=== PATIENT | male | born 1960 | race African-American/Black ===

== ENCOUNTER 2018-03-27 12:14 | Emergency (ER) | payer MEDICAID, OTHER ==
[~2018-03-27] VITALS: Ht 175.3 cm; Wt 80.0 kg
[~2018-03-27 12:14] MED LIST: NO MEDS
[2018-03-27] MEDS ORDERED: ONDANSETRON HCL 4MG TABLET PO ONE (13:00)
[2018-03-27] MEDS ORDERED: IBUPROFEN 600MG TABLET PO ONE (13:00)
[2018-03-27] MEDS ORDERED: ACETAMINOPHEN 325MG TABLET PO ONE (13:00)
[2018-03-27 13:01] VITALS: BP 122/78
== END 2018-03-27 13:05 | disposition home or self-care (01) ==
LOC: ER 12:40
DX: R51 Headache (principal); R42 Dizziness and giddiness; Z87.891 Personal history of nicotine dependence
CPT/HCPCS: 99284; Q0162

== ENCOUNTER 2018-03-30 19:11 | Emergency (ER) | payer MEDICAID, OTHER ==
[~2018-03-30] VITALS: Ht 177.8 cm; Wt 80.0 kg
[2018-03-30 21:41] LABS: CLARITY URINE CLEAR (CLEAR); COLOR URINE YELLOW (YELLOW); KETONES URINE NEGATIVE (NEGATIVE); LEUKOCYTE ESTERASE URINE NEGATIVE (NEGATIVE); NITRITE URINE NEGATIVE (NEGATIVE); OCCULT BLOOD URINE NEGATIVE (NEGATIVE); PH URINE 5.5 (4.5-8.0); PROTEIN URINE NEGATIVE (NEGATIVE); SPECIFIC GRAVITY URINE 1.011 (1.005-1.030); UROBILINOGEN URINE 0.2 E.U./dL (0.2-1.0)
[2018-03-30 22:01] LABS: *AMPHETAMINES SCREEN URINE NEGATIVE (NEGATIVE); *BARBITURATES SCREEN URINE NEGATIVE (NEGATIVE); *BENZODIAZEPINES SCREEN URINE NEGATIVE (NEGATIVE); *COCAINE SCREEN URINE NEGATIVE (NEGATIVE)
[2018-03-30 22:01] LABS: BASOPHILS % 0.7 % (0.0-2.0); EOSINOPHILS % 1.9 % (0.0-5.0); HEMATOCRIT. 38.5 % (42.0-52.0); HEMOGLOBIN. 13.1 g/dL (14.0-18.0); LYMPHOCYTES % 31.9 % (20.0-50.0); MEAN CORPUSCULAR HEMOGLOBIN 32.4 pg (28.0-32.0); MEAN PLATELET VOLUME 7.7 fl (7.4-10.4); MONOCYTES % 5.6 % (2.0-8.0); NEUTROPHILS % 59.9 % (40.0-76.0); PLATELET 170 x1000/uL (130-400); RED BLOOD CELL COUNT 4.06 mill/uL (4.7-6.1); RED CELL DISTRIBUTION WIDTH 15.1 % (11.6-14.6)
[2018-03-30 22:02] LABS: CANNABINOID URINE SCREEN NEGATIVE (NEGATIVE); METHADONE URINE SCREEN NEGATIVE (NEGATIVE); OPIATES URINE SCREEN NEGATIVE (NEGATIVE); PHENCYCLIDINE URINE SCREEN NEGATIVE (NEGATIVE)
[2018-03-30 22:04] LABS: CHLORIDE 105 mEq/L (98-107)
[2018-03-30 22:08] LABS: ETHANOL BLOOD < 10 mg/dL
[2018-03-30] MEDS ORDERED: POTASSIUM CHLORIDE 20MEQ TABLET SR PO ONE (22:30)
[2018-03-31 12:47] VITALS: BP 142/58
== END 2018-03-31 12:55 | disposition home or self-care (01) ==
LOC: ER 19:11
DX: R45.851 Suicidal ideations (principal); E87.6 Hypokalemia; R51 Headache; Z59.0 Homelessness
CPT/HCPCS: 36415; 80053; 80305; 80307; 80329; 81003; 85025; 99284; G0482

== ENCOUNTER 2018-11-01 21:07 | Emergency (ER) | payer MEDICAID, OTHER ==
[~2018-11-01] VITALS: Ht 177.8 cm; Wt 88.0 kg
[2018-11-01 21:10] VITALS: BP 142/100
== END 2018-11-02 02:30 | disposition left against medical advice (07) ==
LOC: ER 22:23
DX: Z53.21 Procedure and treatment not carried out due to patient leaving prior to being seen by health care provider (principal)

== ENCOUNTER 2018-11-11 21:11 | Emergency (ER) | payer OTHER ==
[~2018-11-11] VITALS: Ht 177.8 cm; Wt 109.0 kg
[2018-11-12 05:00] VITALS: BP 141/78
== END 2018-11-12 10:53 | disposition home or self-care (01) ==
LOC: ER 21:11
DX: J06.9 Acute upper respiratory infection, unspecified (principal); I10 Essential (primary) hypertension; J98.11 Atelectasis; I51.7 Cardiomegaly; Z59.0 Homelessness
CPT/HCPCS: 71045; 99283

== ENCOUNTER 2018-11-14 16:48 | Emergency (ER) | payer OTHER ==
[~2018-11-14] VITALS: Ht 177.8 cm; Wt 80.0 kg
[2018-11-14 16:51] VITALS: BP 180/98
== END 2018-11-14 20:20 | disposition left against medical advice (07) ==
LOC: ER 16:48
DX: Z53.21 Procedure and treatment not carried out due to patient leaving prior to being seen by health care provider (principal)

== ENCOUNTER 2019-03-09 16:27 | Emergency (ER) | payer OTHER ==
[~2019-03-09] VITALS: Ht 177.8 cm; Wt 91.0 kg
[2019-03-09 16:39] VITALS: BP 105/39
== END 2019-03-09 20:50 | disposition left against medical advice (07) ==
LOC: ER 16:27
DX: J00 Acute nasopharyngitis [common cold] (principal); Z53.21 Procedure and treatment not carried out due to patient leaving prior to being seen by health care provider

== ENCOUNTER 2019-07-27 08:18 | Emergency (ER) | payer OTHER ==
[~2019-07-27] VITALS: Ht 177.8 cm; Wt 135.0 kg
[2019-07-27 09:31] LABS: BASOPHILS % 0.8 % (0.0-2.0); EOSINOPHILS % 1.3 % (0.0-5.0); HEMATOCRIT. 41.3 % (42.0-52.0); LYMPHOCYTES % 26.2 % (20.0-50.0); MEAN CORPUSCULAR HEMOGLOBIN 31.7 pg (28.0-32.0); MEAN CORPUSCULAR VOLUME 93.4 fL (80.0-94.0); MEAN PLATELET VOLUME 7.2 fl (7.4-10.4); MONOCYTES % 10.2 % (2.0-8.0); NEUTROPHILS % 61.5 % (40.0-76.0); PLATELET 197 x1000/uL (130-400); RED BLOOD CELL COUNT 4.42 mill/uL (4.7-6.1); RED CELL DISTRIBUTION WIDTH 13.9 % (11.6-14.6)
[2019-07-27 09:36] LABS: CHLORIDE 103 mEq/L (98-107)
[2019-07-27 09:44] LABS: ETHANOL BLOOD < 10 mg/dL
[2019-07-27 09:49] LABS: CLARITY URINE CLEAR (CLEAR); COLOR URINE YELLOW (YELLOW); KETONES URINE NEGATIVE (NEGATIVE); LEUKOCYTE ESTERASE URINE 1+ (NEGATIVE); NITRITE URINE NEGATIVE (NEGATIVE); OCCULT BLOOD URINE TRACE (NEGATIVE); PROTEIN URINE NEGATIVE (NEGATIVE); UROBILINOGEN URINE 0.2 E.U./dL (0.2-1.0)
[2019-07-27 10:02] LABS: *AMPHETAMINES SCREEN URINE NEGATIVE (NEGATIVE); *BARBITURATES SCREEN URINE NEGATIVE (NEGATIVE); *BENZODIAZEPINES SCREEN URINE NEGATIVE (NEGATIVE); *COCAINE SCREEN URINE NEGATIVE (NEGATIVE); CANNABINOID URINE SCREEN NEGATIVE (NEGATIVE); METHADONE URINE SCREEN NEGATIVE (NEGATIVE); OPIATES URINE SCREEN NEGATIVE (NEGATIVE); PHENCYCLIDINE URINE SCREEN NEGATIVE (NEGATIVE)
[2019-07-27 16:15] VITALS: BP 139/93
== END 2019-07-27 16:15 | disposition home or self-care (01) ==
LOC: ER 08:18
DX: R45.851 Suicidal ideations (principal); F12.10 Cannabis abuse, uncomplicated; F15.10 Other stimulant abuse, uncomplicated; F16.10 Hallucinogen abuse, uncomplicated; F19.10 Other psychoactive substance abuse, uncomplicated; F17.200 Nicotine dependence, unspecified, uncomplicated; F10.20 Alcohol dependence, uncomplicated; I95.9 Hypotension, unspecified; Z98.890 Other specified postprocedural states; Y90.0 Blood alcohol level of less than 20 mg/100 ml
CPT/HCPCS: 36415; 80305; 80320; 81003; 99284; G0480

== ENCOUNTER 2019-10-16 10:53 | Emergency (ER) | payer OTHER ==
[~2019-10-16] VITALS: Ht 165.1 cm; Wt 87.0 kg
[2019-10-16] MEDS ORDERED: SODIUM CHLORIDE 0.9% 1,000 ML IV ONE (13:22)
[2019-10-16] MEDS ORDERED: ONDANSETRON HCL 4MG/2ML INJ IV STA (13:22)
[2019-10-16] MEDS ORDERED: ACETAMINOPHEN 325MG TABLET PO ONE (13:30)
[2019-10-16 13:46] LABS: BASOPHILS % 0.6 % (0.0-2.0); EOSINOPHILS % 1.3 % (0.0-5.0); HEMATOCRIT. 42.1 % (42.0-52.0); HEMOGLOBIN. 14.2 g/dL (14.0-18.0); LYMPHOCYTES % 25.4 % (20.0-50.0); MEAN CORPUSCULAR HEMOGLOBIN 32.1 pg (28.0-32.0); MEAN PLATELET VOLUME 7.4 fl (7.4-10.4); MONOCYTES % 7.5 % (2.0-8.0); NEUTROPHILS % 65.2 % (40.0-76.0); PLATELET 215 x1000/uL (130-400); RED BLOOD CELL COUNT 4.43 mill/uL (4.7-6.1)
[2019-10-16 13:53] LABS: CHLORIDE 104 mEq/L (98-107)
[2019-10-16] MEDS ORDERED: FAMOTIDINE 20MG TABLET PO ONE (14:15)
[2019-10-16 14:30] VITALS: BP 120/68
== END 2019-10-16 15:10 | disposition home or self-care (01) ==
LOC: ER 10:53
DX: R19.7 Diarrhea, unspecified (principal); I10 Essential (primary) hypertension; F12.10 Cannabis abuse, uncomplicated; F15.10 Other stimulant abuse, uncomplicated; F16.10 Hallucinogen abuse, uncomplicated; Z87.891 Personal history of nicotine dependence
CPT/HCPCS: 36415; 80053; 83690; 85025; 96374; 99283; J2405; J7030

== ENCOUNTER 2019-11-17 03:18 | Emergency (ER) | payer OTHER ==
[~2019-11-17] VITALS: Ht 177.8 cm; Wt 150.0 kg
[2019-11-17 03:54] VITALS: BP 144/91
== END 2019-11-17 08:56 | disposition left against medical advice (07) ==
LOC: ER 03:18
DX: Z53.21 Procedure and treatment not carried out due to patient leaving prior to being seen by health care provider (principal); F31.9 Bipolar disorder, unspecified; F20.9 Schizophrenia, unspecified

== ENCOUNTER 2019-11-30 13:16 | Emergency (ER) | payer MEDICAID, OTHER ==
[~2019-11-30] VITALS: Ht 177.8 cm; Wt 100.0 kg
[2019-11-30 14:37] LABS: BASOPHILS % 0.7 % (0.0-2.0); EOSINOPHILS % 0.6 % (0.0-5.0); HEMATOCRIT. 40.3 % (42.0-52.0); HEMOGLOBIN. 14.3 g/dL (14.0-18.0); MEAN CORPUSCULAR HEMOGLOBIN 33.1 pg (28.0-32.0); MEAN CORPUSCULAR VOLUME 92.8 fL (80.0-94.0); MEAN PLATELET VOLUME 7.2 fl (7.4-10.4); MONOCYTES % 6.6 % (2.0-8.0); NEUTROPHILS % 69.1 % (40.0-76.0); PLATELET 190 x1000/uL (130-400); RED BLOOD CELL COUNT 4.34 mill/uL (4.7-6.1); RED CELL DISTRIBUTION WIDTH 13.8 % (11.6-14.6)
[2019-11-30 14:43] LABS: CHLORIDE 101 mEq/L (98-107)
[2019-11-30 14:47] LABS: ETHANOL BLOOD < 10 mg/dL
[2019-11-30 15:02] LABS: CLARITY URINE CLEAR (CLEAR); COLOR URINE YELLOW (YELLOW); KETONES URINE NEGATIVE (NEGATIVE); LEUKOCYTE ESTERASE URINE NEGATIVE (NEGATIVE); NITRITE URINE NEGATIVE (NEGATIVE); OCCULT BLOOD URINE 1+ (NEGATIVE); PROTEIN URINE NEGATIVE (NEGATIVE); SPECIFIC GRAVITY URINE 1.006 (1.005-1.030); UROBILINOGEN URINE 0.2 E.U./dL (0.2-1.0)
[2019-11-30 15:38] LABS: *AMPHETAMINES SCREEN URINE NEGATIVE (NEGATIVE); *BARBITURATES SCREEN URINE NEGATIVE (NEGATIVE); *BENZODIAZEPINES SCREEN URINE NEGATIVE (NEGATIVE); *COCAINE SCREEN URINE NEGATIVE (NEGATIVE); CANNABINOID URINE SCREEN NEGATIVE (NEGATIVE); METHADONE URINE SCREEN NEGATIVE (NEGATIVE); OPIATES URINE SCREEN NEGATIVE (NEGATIVE); PHENCYCLIDINE URINE SCREEN NEGATIVE (NEGATIVE)
[2019-11-30] MEDS ORDERED: LORAZEPAM 1MG TABLET PO ONE (16:15)
[2019-11-30] MEDS ORDERED: QUETIAPINE FUMARATE 50MG TABLET PO SCH (18:15)
[2019-12-01] MEDS ORDERED: ACETAMINOPHEN 325MG TABLET PO ONE (13:45)
[2019-12-01 19:30] VITALS: BP 121/69
== END 2019-12-01 19:52 ==
LOC: ER 13:24
DX: R45.851 Suicidal ideations (principal); R44.3 Hallucinations, unspecified; F12.10 Cannabis abuse, uncomplicated; Z59.0 Homelessness
CPT/HCPCS: 36415; 80053; 80305; 80320; 81003; 82962; 85025; 99283; Z7610; G0480

== ENCOUNTER 2019-12-17 18:34 | Emergency (ER) | payer MEDICAID, OTHER ==
[~2019-12-17] VITALS: Ht 177.8 cm; Wt 104.0 kg
[2019-12-17] MEDS ORDERED: LORAZEPAM 1MG TABLET PO ONE (21:15)
[2019-12-17 21:57] LABS: *AMPHETAMINES SCREEN URINE NEGATIVE (NEGATIVE); *BARBITURATES SCREEN URINE NEGATIVE (NEGATIVE); *BENZODIAZEPINES SCREEN URINE NEGATIVE (NEGATIVE)
[2019-12-17 21:58] LABS: *COCAINE SCREEN URINE NEGATIVE (NEGATIVE); CANNABINOID URINE SCREEN NEGATIVE (NEGATIVE); METHADONE URINE SCREEN NEGATIVE (NEGATIVE); OPIATES URINE SCREEN NEGATIVE (NEGATIVE); PHENCYCLIDINE URINE SCREEN NEGATIVE (NEGATIVE)
[2019-12-17 23:01] LABS: CHLORIDE 99 mEq/L (98-107)
[2019-12-17 23:05] LABS: ETHANOL BLOOD < 10 mg/dL
[2019-12-17 23:09] LABS: CREATINE KINASE 226 IU/L (39-308)
[2019-12-18 03:58] LABS: BASOPHILS % 0.6 % (0.0-2.0); EOSINOPHILS % 1.5 % (0.0-5.0); HEMATOCRIT. 44.4 % (42.0-52.0); HEMOGLOBIN. 15.4 g/dL (14.0-18.0); LYMPHOCYTES % 38.7 % (20.0-50.0); MEAN CORPUSCULAR HEMOGLOBIN 32.1 pg (28.0-32.0); MEAN CORPUSCULAR VOLUME 92.2 fL (80.0-94.0); MEAN PLATELET VOLUME 6.9 fl (7.4-10.4); MONOCYTES % 8.4 % (2.0-8.0); NEUTROPHILS % 50.8 % (40.0-76.0); PLATELET 202 x1000/uL (130-400); RED BLOOD CELL COUNT 4.81 mill/uL (4.7-6.1); RED CELL DISTRIBUTION WIDTH 13.2 % (11.6-14.6)
[2019-12-18] MEDS ORDERED: MAGNESIUM/ALUMINUM HYDROXIDE/SIMETHICONE 30ML UDC PO STA (13:37)
[2019-12-18] MEDS ORDERED: ACETAMINOPHEN 325MG TABLET PO STA (13:38)
[2019-12-18] MEDS: QUETIAPINE FUMARATE 50MG TABLET PO SCH (23:46)
[2019-12-19] MEDS: QUETIAPINE FUMARATE 50MG TABLET PO SCH (22:07)
[2019-12-20] MEDS ORDERED: SODIUM CHLORIDE 0.9% 1,000 ML IV ONE (00:53)
[2019-12-20 03:10] LABS: CHLORIDE 107 mEq/L (98-107)
[2019-12-20 03:13] LABS: ETHANOL BLOOD < 10 mg/dL
[2019-12-20] MEDS ORDERED: POTASSIUM CHLORIDE 20MEQ TABLET SR PO ONE (04:30)
[2019-12-20 07:45] VITALS: BP 125/96
== END 2019-12-20 08:34 ==
LOC: ER 18:49
DX: R53.1 Weakness (principal); R45.851 Suicidal ideations; R53.83 Other fatigue; F31.9 Bipolar disorder, unspecified; F20.9 Schizophrenia, unspecified; F12.10 Cannabis abuse, uncomplicated; Z98.890 Other specified postprocedural states; Z75.1 Person awaiting admission to adequate facility elsewhere
CPT/HCPCS: 36415; 80048; 80053; 80305; 80307; 80320; 80329; 82550; 84443; 85025; 93005; 99284; J7030; Z7610; G0480

== ENCOUNTER 2022-07-13 11:57 | Emergency (ER) | payer OTHER ==
[~2022-07-13] VITALS: Ht 167.6 cm; Wt 82.0 kg
[2022-07-13 12:07] VITALS: BP 129/105
== END 2022-07-13 12:42 | disposition home or self-care (01) ==
LOC: ER 12:05
DX: L97.929 Non-pressure chronic ulcer of unspecified part of left lower leg with unspecified severity (principal); F32.9 Major depressive disorder, single episode, unspecified; F20.9 Schizophrenia, unspecified
CPT/HCPCS: 99281

== ENCOUNTER 2023-10-03 17:05 | Emergency (ER) | payer OTHER ==
[~2023-10-03] VITALS: Ht 177.8 cm; Wt 100.0 kg
[2023-10-03 17:09] VITALS: O2SAT 99
[2023-10-03] MEDS ORDERED: ONDANSETRON 4MG ODT PO ONE (17:15)
[2023-10-03 18:46] LABS: CLARITY URINE CLEAR (CLEAR); COLOR URINE YELLOW (YELLOW); GLUCOSE URINE NEGATIVE (NEGATIVE); KETONES URINE NEGATIVE (NEGATIVE); LEUKOCYTE ESTERASE URINE NEGATIVE (NEGATIVE); NITRITE URINE NEGATIVE (NEGATIVE); OCCULT BLOOD URINE NEGATIVE (NEGATIVE); PH URINE 6.5 (4.5-8.0); PROTEIN URINE NEGATIVE (NEGATIVE); SPECIFIC GRAVITY URINE 1.002 (1.005-1.030); UROBILINOGEN URINE 0.2 E.U./dL (0.2-1.0)
[2023-10-03] MEDS ORDERED: ONDANSETRON 4MG ODT PO NR (19:30)
[2023-10-03 20:03] LABS: BASOPHILS % 0.6 % (0.0-2.0); EOSINOPHILS % 0.5 % (0.0-5.0); HEMATOCRIT. 38.6 % (42.0-52.0); HEMOGLOBIN. 12.9 g/dL (14.0-18.0); MEAN CORPUSCULAR HEMOGLOBIN 30.2 pg (28.0-32.0); MEAN CORPUSCULAR HGB CONC 33.5 g/dL (31.0-37.0); MEAN CORPUSCULAR VOLUME 90.1 fL (80.0-94.0); MEAN PLATELET VOLUME 6.6 fl (7.4-10.4); MONOCYTES % 10.9 % (2.0-8.0); PLATELET 210 x1000/uL (130-400); RED BLOOD CELL COUNT 4.28 mill/uL (4.7-6.1); RED CELL DISTRIBUTION WIDTH 15.9 % (11.6-14.6); WHITE BLOOD COUNT 4.8 x1000/uL (4.5-11.0)
[2023-10-03 20:17] LABS: CHLORIDE 104 mEq/L (98-107); INDEX HEMOLYSI 1 (1-3); INDEX ICTERIC 1 (1-4); INDEX LIPEMIC 1 (1-3)
[2023-10-03 20:26] LABS: ACETAMINOPHEN <2 ug/mL ug/mL (10-30); ALANINE AMINOTRANSFERASE 19 IU/L (13-61); ALBUMIN 3.4 g/dL (3.4-5.0); ASPARTATE AMINOTRANSFERASE 13 IU/L (15-37); BILIRUBIN TOTAL 0.3 mg/dL (0.1-1.0); CALCIUM 9.1 mg/dL (8.5-10.1); CARBON DIOXIDE 29 mEq/L (21-32); CREATININE 0.6 mg/dL (0.6-1.3); ETHANOL BLOOD < 10 mg/dL (<10); GLUCOSE 126 mg/dL (70-105); PROTEIN TOTAL 7.4 g/dL (6.0-8.3); UREA NITROGEN BLOOD 8 mg/dL (7-21)
[2023-10-03 20:27] LABS: PROTHROMBIN TIME 10.7 sec (9.6-11.0)
[2023-10-03 20:28] LABS: POTASSIUM 3.9 mEq/L (3.5-5.1); SODIUM 136 mEq/L (136-145)
[2023-10-03 20:55] LABS: *AMPHETAMINES SCREEN URINE NEGATIVE (NEGATIVE); *BARBITURATES SCREEN URINE NEGATIVE (NEGATIVE); *BENZODIAZEPINES SCREEN URINE NEGATIVE (NEGATIVE); *COCAINE SCREEN URINE NEGATIVE (NEGATIVE); CANNABINOID URINE SCREEN NEGATIVE (NEGATIVE); ECSTASY MDMA SCREEN URINE NEGATIVE (NEGATIVE); METHADONE URINE SCREEN NEGATIVE (NEGATIVE); OPIATES URINE SCREEN NEGATIVE (NEGATIVE); PHENCYCLIDINE URINE SCREEN NEGATIVE (NEGATIVE)
[2023-10-04] MEDS: RISPERIDONE 1MG TABLET PO SCH (14:17)
[2023-10-04] MEDS: BENZTROPINE MESYLATE 1MG TABLET PO SCH (15:28)
[2023-10-05] MEDS: RISPERIDONE 1MG TABLET PO SCH (10:29)
[2023-10-05] MEDS: BENZTROPINE MESYLATE 1MG TABLET PO SCH (10:29)
[2023-10-06 02:41] VITALS: TEMP 97.9
[2023-10-06] MEDS: BENZTROPINE MESYLATE 1MG TABLET PO SCH (09:00)
[2023-10-06] MEDS: RISPERIDONE 1MG TABLET PO SCH (09:00)
[2023-10-06 19:32] VITALS: BP 163/99; PULSE 87; RESP 20
== END 2023-10-06 19:45 | disposition short-term general hospital (02) ==
LOC: ER 17:05
DX: R11.2 Nausea with vomiting, unspecified (principal); F12.10 Cannabis abuse, uncomplicated; Z20.822 Contact with and (suspected) exposure to COVID-19; Z98.890 Other specified postprocedural states; Z86.59 Personal history of other mental and behavioral disorders
CPT/HCPCS: 80053; 80305; 81003; 80307; 80329; 80320; 83690; 85025; 85610; 36415; 76705; 99285; 87426; Q0162; C9803; G0480